=== PATIENT | male | born 1980 | race Caucasian/White ===

== ENCOUNTER 2021-01-01 19:00 | Emergency (ER) | payer BC ==
[~2021-01-01] VITALS: Ht 177.8 cm; Wt 127.0 kg
--- NOTE | 2021-01-01 19:19 | NUR ---
PATIENT ARRIVES WITH PAIN TO RIGHT SIDE OF RIB CAGE AND TORSO FROM AN INJURY THAT HAPPENED AT [facility] THREE DAYS AGO. HE IS JUST RECENTLY BECOMING SHORT OF BREATH TODAY. Addendum: 01/01/21 at 1925 by KARL PATIENT ARRIVES WITH PAIN TO RIGHT SIDE OF RIB CAGE AND TORSO FROM AN INJURY THAT HAPPENED AT [facility] NINE DAYS AGO. HE IS JUST RECENTLY BECOMING SHORT OF BREATH TODAY.
[2021-01-01] MEDS ORDERED: LORazepam 1MG TABLET PO ONE (19:30)
--- NOTE | 2021-01-01 19:32 | NUR ---
got patient incevtive spirometer, and did instructions on use.
[2021-01-01] MEDS ORDERED: LORazepam 1MG TABLET ONE (19:51)
[2021-01-01 20:41] VITALS: BP 136/78
== END 2021-01-01 20:59 | disposition home or self-care (01) ==
LOC: ED 20:55
DX: R07.89 Other chest pain (principal); R94.31 Abnormal electrocardiogram [ECG] [EKG]; I10 Essential (primary) hypertension; E03.9 Hypothyroidism, unspecified; W01.0XXA Fall on same level from slipping, tripping and stumbling without subsequent striking against object, initial encounter; Y93.89 Activity, other specified; Y92.89 Other specified places as the place of occurrence of the external cause; Y99.8 Other external cause status
CPT/HCPCS: 93005; 99283